=== PATIENT | male | born 1985 | race Caucasian/White ===

== ENCOUNTER → 2018-09-25 | Outpatient (CLI) | payer BC ==
--- NOTE | 2018-09-25 12:45 | MR ---
EXAMINATION TYPE: MR shoulder RT wo con DATE OF EXAM: 09/25/2018 COMPARISON: None HISTORY: Rt shoulder pain TECHNIQUE: Multiplanar, multisequence imaging of the right shoulder is performed without contrast. FINDINGS: Rotator Cuff: There is some undersurface increased signal noted peripherally without full-thickness t ear. There is likely some associated tendinosis. Acromioclavicular Joint: Hypertrophic changes are present causing mild mass effect on the musculotend inous junction of supraspinatus, suspect there may be a small distal acromial spur Glenohumeral Joint: Intact Labrum: Intact Biceps Tendon: The long head of biceps is in normal location within bicipital groove. Bone marrow signal: Minimal increased signal present in the humeral head Other: Small amount of fluid signal present in the subacromial subdeltoid bursa. IMPRESSION: Findings consistent with partial undersurface rotator cuff tear, correlate for impingement.
== END ==
LOC: RADMRIMAIN 09:22
PROVIDERS: ATTEND Internal Medicine
DX: M25.511 Pain in right shoulder (principal)